=== PATIENT | female | born 1970 | race Two or more races ===

== ENCOUNTER → 2016-05-23 | Outpatient (CLI) | payer OTHER ==
[~2016-05-23] MED LIST: ACET30TAB PO; BACL10TA2 PO; CLAR5TAB7 PO; EXCETAB81 PO; MULTCAP PO; TOPA100T8 PO; ZOLO50TA PO
--- NOTE | 2016-05-23 23:41 | ECWPNPC ---
PATIENT NAME: AISHA OLIVO : 1970 GENDER: FEMALE VISIT DATE: 05/23/2016 DISCHARGE DATE: 05/23/16 1234 VISIT LOCKED DATE TIME: PHYSICIAN: HUEY LÓPEZ RESOURCE: HUEY LÓPEZ REASON FOR APPOINTMENT 1. NECK HISTORY OF PRESENT ILLNESS NEW PATIENT CONSULT: 46 Y/O REFERRED BY KWABENA PAYAN AT [facility] TO EVALUATE CHRONIC NECK PAIN.PAIN BEGAN APPROXIMATLEY TWO YEARS AGO WITHOUT PRECIPITATING EVENT.NOTICED RIGHT ARM NUMBNESS ABOUT 2 DAYS AGO.STATES SHE LIFTED SOMEONE HEAVY AND THIS BEGAN IN RIGHT ARM.SHE IS A NURSE AIDE.RATING PAIN VAS 7/10.PAIN IS AGGREVATED BY LIFTING.RELIEVED SOMEWHAT BY HEAT AND BACLOFEN. WHEN DID YOUR PAIN FIRST START? . BRIEFLY DESCRIBE HOW YOUR PAIN STARTED? . HOW DOES YOUR PAIN CHANGE WITH TIME? . DOES YOUR PAIN AWAKEN YOU FROM SLEEP? . HOW MANY HOURS OF SLEEP DO YOU NORMALLY GET? . ANY DIAGNOSTIC TESTING? . FACILITY WHERE TESTS WERE DONE? ____. PAIN TREATMENT TREATMENT YES CANCER HAVE YOU EVER HAD ANY TYPE OF CANCER?NO NO. PAIN SCREENING: PATIENT HAS A COMPLAINT OF ACUTE OR CHRONIC PAIN YES FALL RISK SCREENING: SCREENING :NO FALLS IN THE PAST YEAR MAGDALENO INVENTORY: QUESTIONNAIRE ASSESSEDTBD SCORE VALUE CALCULATED TBD CURRENT MEDICATIONS TAKING TOPAMAX 100 MG TABLET 1 TABLET ORALLY TWICE A DAY TAKING BACLOFEN 10 MG TABLET 1 TABLET WITH FOOD OR MILK ORALLY THREE TIMES A DAY NEEDED TAKING LISINOPRIL-HYDROCHLOROTHIAZIDE 10-12.5 MG TABLET 1 TABLET ORALLY ONCE A DAY TAKING EXCEDRIN EXTRA STRENGTH 250-250-65 MG TABLET 2 TABLETS NEEDED ORALLY EVERY 6 HRS MEDICATION LIST REVIEWED AND RECONCILED WITH THE PATIENT PAST MEDICAL HISTORY MIGRAINES HYPERTENSION NECK PAIN ALLERGIES IMITREX: FACIAL STIFFNESS: ALLERGY CYCLOBENZAPRINE HCL: "ELECTRIC SHOCK SENSATIONS: SIDE EFFECTS SURGICAL HISTORY APPENDECTOMY 1985 BREAST BX 1998 SINUS SURGERY 1999 FAMILY HISTORY FATHER: MOTHER: ALIVE, DIAGNOSED WITH HYPERTENSION SOCIAL HISTORY GENERAL: TOBACCO USE ARE YOU A:CURRENT SMOKER PATIENT COUNSELED ON THE DANGERS OF TOBACCO USE AND URGED TO QUIT:05/23/2016 ARE YOU INTERESTED IN QUITTING?THINKING ABOUT QUITTING COUNSELED THE PATIENT ON SMOKING CESSATION, EDUCATION [id number]/04/2016 ALCOHOL SCREENING POINTS1 INTERPRETATIONNEGATIVE RECREATIONAL DRUG USE DRUG USE?NO CAFFEINE CAFFEINE USE?YES HOW OFTEN AND HOW MUCH? 4-5 CUPS COFFEE/DAILY. USES EXCEDRIN WITH CAFFEINE DAILY. OCCUPATION: STEEL INSPECTOR. DIET: REGULAR. EXERCISE: NO REGULAR EXERCISE. MARITAL STATUS: SINGLE. OTHERS AT HOME: LIVES ALONE. MUSLIM: NONE. LEARNING BARRIERS / SPECIAL NEEDS LEARNING PREFERENCES?YES :DEMONSTRATION/VERBAL INSTRUCTION LEARNING CAPABILITIES PRESENT?YES MEDICATION ABUSE NO PSYCHOLOGICAL HX TREATMENTNO PAIN CLINIC PFS, CLERGY, PUBLIC HEALTH REFERRALS CLERGY REFERRAL NEEDED?NO WAS THE PROVIDER NOTIFIED OF ANY PERTINENT INFO?NO PFS REFERRAL NEEDED?NO PUBLIC HEALTH REFERRAL NEEDED?NO PATIENT: ____. ADVANCED DIRECTIVES HEALTH CARE PROXY?NO POWER OF COMMUNITY SPORTS COORDINATOR?NO DOMESTIC VIOLENCE: NONE. HOSPITALIZATION/MAJOR DIAGNOSTIC PROCEDURE ABOVE SURGERIES REVIEW OF SYSTEMS CONSTITUTIONAL: ANY CHANGE IN YOUR MEDICAL CONDITION? NO . RECENT ILLNESS DENIES . CHILLS NO . FEVER NO . WEIGHT LOSS DENIES . INFECTION: DO YOU HAVE NEW INFECTIONS? NO . DO YOU HAVE HISTORY OF MRSA? NO . MUSCULOSKELETAL: ANY NEW PATTERNS OF PAIN OR NUMBNESS? YES NOTES HX OF NECK PAIN X 2YRS . SYTEMIC LUPUS NO . GASTROENTEROLOGY: ANY NEW CHANGE IN BOWEL CONTROL? NO . BARRETTS ESOPHAGUS NO . CIRRHOSIS NO . HEPATITIS NO . LIVER FAILURE NO . ACID REFLUX NO . UNEXPLAINED WEIGHT LOSS NO . GENITOURINARY: ANY NEW CHANGE IN BLADDER CONTROL? NO . IS THERE A CHANCE YOU COULD BE ? NO . HEMATOLOGY/LYMPH: DO YOU TAKE ANY BLOOD THINNERS? (FOR EXAMPLE- COUMADIN, PLAVIX, AGGRENOX, PLATEL, PRADAXA, OR XARELTO) NO . WHEN WAS YOUR LAST DOSE? DATE: TIME: . LOW PLATELET COUNT NO . SICKLE CELL DISEASE NO . VON WILLIEBRANDS NO . FACTOR V LEIDEN NO . THALLASEMIA NO . ANEMIA NO . EASY BRUISING NO . NEUROLOGY: HAVE YOU FALLEN IN THE PAST 6 MONTHS? NO . ANY NEW EXTREMITY NUMBNESS OR WEAKNESS? YES NOTES TINGLING/DISC IN BOTH ARMS-LEFT ARM FINGERTIPS TO ELBOW. RIGHT ARM ENTIRE ARM . HEAD INJURY NO . DEMENTIA NO . CEREBRAL PALSY NO . MULTIPLE SCLEROSIS NO . DIZZINESS NO . HEADACHE ASSOCIATED WITH NAUSEA, ASSOCIATED WITH PHOTOPHOBIA, DIFFUSE, INTERMITTENT, POUNDING, SHARP, SEVERE . STROKES NO . VERTIGO NO . CARDIOLOGY: DO YOU HAVE A PACEMAKER OR DEFIBRILLATOR? NO . ANGINA NO . HEART ATTACK NO . HEART SURGERY NO . CONGESTIVE HEART FAILURE/FLUID OVERLOAD NO . CHEST PAIN NO, DENIES . HIGH BLOOD PRESSURE ON MEDICATION(S) . IRREGULAR HEART BEAT NO . SHORTNESS OF BREATH DENIES . RESPIRATORY: HAVE YOU BEEN SICK IN THE PAST WEEK? NO . FEVER NO . FLU LIKE SYMPTOMS? NO . CPAP NO . BYPAP NO . ASTHMA NO . EMPHYSEMA NO . CHRONIC LUNG DISEASES NO . SHORTNESS OF BREATH ON EXERTION NO . DO YOU USE ANY TYPE OF TOBACCO (SMOKE, SMOKELESS, CHEW)? YES-7-10 CIGS/DAILY . COUGH NO, DENIES . SHORTNESS OF BREATH DENIES . SNORING NO . INTEGUMENTARY: DO YOU HAVE ANY RASHES OR OPEN SORES? NO . ALLERGIC/IMMUNO: ARE YOU ALLERGIC TO SHELLFISH OR IV DYE? NO . ANY NEW ALLERGIES? NO . PSYCHIATRIC: DO YOU HAVE THOUGHTS OF HURTING YOURSELF OR SOMEONE ELSE? NO . ARE YOU ABUSED, NEGLECTED, OR IN AN UNSAFE ENVIRONMENT? NO . ENDOCRINOLOGY: ARE YOU DIABETIC? NO . THYROID DISORDER NO . OTHER: DO YOU NEED ANY PRESCRIPTIONS? NO . IF YES, PLEASE LIST: ____ . ANY NEW PROBLEMS WITH YOUR MEDICATIONS? NO . WHEN DID YOU LAST EAT? ____ . WHEN DID YOU LAST DRINK? ____ . WHAT DID YOU LAST DRINK? ____ . NAME OF PERSON DRIVING YOU HOME? ____ . DO YOU HAVE ANY OTHER QUESTIONS OR CONCERNS NO . REVIEWED BY: PROVIDER: HUEY NOVA . VITAL SIGNS WT 114.2 LBS, HT 60 IN, BMI 22.30 INDEX, BP 121/65 MM HG, HR 82 /MIN, RR 16 /MIN, TEMP 97&, OXYGEN SAT % 98%, NA INITIALS SC 11:26, REVIEWED BY: MLF. EXAMINATION GENERAL EXAMINATION: GENERAL APPEARANCE:SHOWING SIGNS OF DISCOMFORT OVER RIGHT ARM. NECK:NEG. LYMPHADENOPATHY.. LUNGS:LUNG SOUNDS ARE CLEAR. HEART:HEART RATE REGULAR. ABDOMEN:SOFT AND NOT TENDER. MUSCULOSKELETAL:*, MUSCLE STRENGTH TESTING 5/5 BILATERAL UPPER EXTREMITIES., PALPATION: POSITIVE FOR PAIN OVER CSPINE. POSITIVE FOR PAIN OVER RIGHT CERVICAL PARASPINAL., TRIGGER POINTS:, ELICITED WITH PALPATION OVER CERVICAL SPINOUS PROCESSES AND ACROSS THE TRAPEZIUS MUSCLES RIGHT. RESTRICTION OF ROM IS NOTED RIGHT ARM. . DIAGNOSTIC:MRI [id number]. 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 PREVENTIVE MEDICINE PAIN CLINIC TEACHING: MEDICATIONS PRINTED HANDOUT GIVEN TO PT FOR GABAPENTIN. PROCEDURE CODES FA211 ESTABILISHED PATIENT [facility] CHARGE DISPOSITION & COMMUNICATION FOLLOW UP 2WK POST (REASON: C5/6-C6/7 ROGER) ELECTRONICALLY SIGNED BY AVTAR PALM ON 05/23/2016 AT 01:00 PM EST DISCLAIMER : THIS IS A VISIT SUMMARY EXTRACTED FROM THE [employer] CHART. IT IS NOT A COPY OF THE [employer] PROGRESS NOTE. ZARIA
== END ==
LOC: M PAIN 11:20
PROVIDERS: ATTEND Nurse Practitioner Family
DX: G89.29 Other chronic pain (principal); M47.22 Other spondylosis with radiculopathy, cervical region; G43.909 Migraine, unspecified, not intractable, without status migrainosus; I10 Essential (primary) hypertension; Z88.8 Allergy status to other drugs, medicaments and biological substances; F17.200 Nicotine dependence, unspecified, uncomplicated; Z79.899 Other long term (current) drug therapy

== ENCOUNTER → 2016-06-26 | Outpatient (CLI) | payer OTHER ==
[~2016-06-26] MED LIST changes: +ISOVUE-M 300 61% 15ML VIAL (Q9967) As Ordered ONE; +LIDOCAINE 1% SDV INJ 30 ML VIAL As Ordered ONE; +methylPREDNISolone SUSP 40 MG/ML (DEPO-medrol) VIAL (J1030) As Ordered ONE
--- NOTE | 2016-06-26 12:36 | REP ---
PARTIAL CERVICAL SPINE SERIES: Four views. HISTORY: Cervical epidural steroid injection for pain. 29 seconds of fluoroscopy time is reported. FINDINGS: A sequence of four last image hold fluoroscopic spot radiographs of the cervicothoracic junction document needle position and contrast injection associated with cervical epidural injection procedure. Signed by Mando Dowling MD 06/26/2016 08:57 P
--- NOTE | 2016-06-30 23:33 | ECWPNPC ---
PATIENT NAME: AISHA OLIVO : 1970 GENDER: FEMALE VISIT DATE: 06/26/2016 DISCHARGE DATE: 06/26/16 1159 VISIT LOCKED DATE TIME: PHYSICIAN: JONATHAN VALDOVINOS RESOURCE: JONATHAN VALDOVINOS REASON FOR APPOINTMENT 1. CERVICAL EPIDURAL HISTORY OF PRESENT ILLNESS HISTORY OF PRESENT ILLNESS: PAIN THE PATIENT DESCRIBES THE PAIN... FALL RISK SCREENING: SCREENING :NO FALLS IN THE PAST YEAR CURRENT MEDICATIONS TAKING TOPAMAX 100 MG TABLET 1 TABLET ORALLY TWICE A DAY, NOTES: 06/24/16 2100 TAKING BACLOFEN 10 MG TABLET 1 TABLET WITH FOOD OR MILK ORALLY THREE TIMES A DAY NEEDED, NOTES: > 1 WEEK TAKING LISINOPRIL-HYDROCHLOROTHIAZIDE 10-12.5 MG TABLET 1 TABLET ORALLY ONCE A DAY, NOTES: 06/26/16 0600 TAKING EXCEDRIN EXTRA STRENGTH 250-250-65 MG TABLET 2 TABLETS NEEDED ORALLY EVERY 6 HRS, NOTES: 06/25/16 1900 TAKING GABAPENTIN 100 MG CAPSULE DIRECTED ORALLY BID, NOTES: 06/24/162099 MEDICATION LIST REVIEWED AND RECONCILED WITH THE PATIENT PAST MEDICAL HISTORY MIGRAINES HYPERTENSION NECK PAIN ALLERGIES IMITREX: FACIAL STIFFNESS: ALLERGY CYCLOBENZAPRINE HCL: "ELECTRIC SHOCK SENSATIONS: SIDE EFFECTS SOCIAL HISTORY GENERAL: PAIN CLINIC PFS, CLERGY, PUBLIC HEALTH REFERRALS CLERGY REFERRAL NEEDED?NO WAS THE PROVIDER NOTIFIED OF ANY PERTINENT INFO?NO PFS REFERRAL NEEDED?NO PUBLIC HEALTH REFERRAL NEEDED?NO PATIENT: ____. REVIEW OF SYSTEMS CONSTITUTIONAL: ANY CHANGE IN YOUR MEDICAL CONDITION? NO . CHILLS NO . FEVER NO . INFECTION: DO YOU HAVE NEW INFECTIONS? NO . DO YOU HAVE HISTORY OF MRSA? NO . MUSCULOSKELETAL: ANY NEW PATTERNS OF PAIN OR NUMBNESS? NO . GASTROENTEROLOGY: ANY NEW CHANGE IN BOWEL CONTROL? NO . GENITOURINARY: ANY NEW CHANGE IN BLADDER CONTROL? NO . IS THERE A CHANCE YOU COULD BE ? NO . HEMATOLOGY/LYMPH: DO YOU TAKE ANY BLOOD THINNERS? (FOR EXAMPLE- COUMADIN, PLAVIX, AGGRENOX, PLATEL, PRADAXA, OR XARELTO) NO . WHEN WAS YOUR LAST DOSE? DATE: TIME: . NEUROLOGY: HAVE YOU FALLEN IN THE PAST 6 MONTHS? NO . ANY NEW EXTREMITY NUMBNESS OR WEAKNESS? NO . CARDIOLOGY: DO YOU HAVE A PACEMAKER OR DEFIBRILLATOR? NO . RESPIRATORY: HAVE YOU BEEN SICK IN THE PAST WEEK? NO . FEVER NO . FLU LIKE SYMPTOMS? NO . COUGH NO . INTEGUMENTARY: DO YOU HAVE ANY RASHES OR OPEN SORES? NO . ALLERGIC/IMMUNO: ARE YOU ALLERGIC TO SHELLFISH OR IV DYE? NO . ANY NEW ALLERGIES? NO . PSYCHIATRIC: DO YOU HAVE THOUGHTS OF HURTING YOURSELF OR SOMEONE ELSE? NO . ARE YOU ABUSED, NEGLECTED, OR IN AN UNSAFE ENVIRONMENT? NO . ENDOCRINOLOGY: ARE YOU DIABETIC? NO . OTHER: DO YOU NEED ANY PRESCRIPTIONS? NO . IF YES, PLEASE LIST: ____ . ANY NEW PROBLEMS WITH YOUR MEDICATIONS? NO . WHEN DID YOU LAST EAT? ____06/25/161999 . WHEN DID YOU LAST DRINK? ____06/26/16 0500 . WHAT DID YOU LAST DRINK? ____WATER . NAME OF PERSON DRIVING YOU HOME? ____DAWSON BREWER . DO YOU HAVE ANY OTHER QUESTIONS OR CONCERNS NO . REVIEWED BY: PROVIDER: . VITAL SIGNS WT 114.0 LBS, HT 60 IN, BMI 22.26 INDEX, BP 126/74 MM HG, HR 83 /MIN, RR 16 /MIN, TEMP 98.8 F, OXYGEN SAT % 100%, SAFE IN ENV? (Y/N) YES, NA INITIALS TL 0939, REVIEWED BY: LAS. WHALEN CERVICAL DISC DISORDER WITH RADICULOPATHY, CERVICOTHORACIC REGION - M50.13 (PRIMARY) PROCEDURES PN CERVICAL EPIDURAL PRE PROCEDURE DIAGNOSIS CERVICAL DISC DISORDER WITH RADICULOPATHY , CERVICAL RADICULOPATHY POST PROCEDURE DIAGNOSIS CERVICAL DISC DISORDER WITH RADICULOPATHY , CERVICAL RADICULOPATHY PROCEDURE C7-T1 EPIDURAL STEROID INJECTION UNDER FLUOROSCOPIC GUIDANCE (ALTERED TO T1-T2) SURGEON DR. JONATHAN VALDOVINOS EMBEDDED LINUX ENGINEER NONE ANESTHESIA LOCAL PRE PROCEDURE NOTE THE PATIENT HAS A HISTORY OF CHRONIC CERVICAL PAIN. I EVALUATE THE PATIENT AND REVIEWED THE CHART. I WENT OVER THE RISKS, ALTERNATIVES, AND BENEFITS ASSOCIATED WITH THIS PROCEDURE. THE PATIENT WOULD LIKE TO PROCEED AND GIVE CONSENT TO PERFORMED THE PROCEDURE. THE PATIENT DENIES UNEXPLAINABLE WEIGHT LOSS, FEVER, CHILLS, OR NEW CHANGES IN URINARY OR BOWEL CONTROL DESCRIPTION OF PROCEDURE THE PATIENT WAS BROUGHT TO THE PROCEDURE ROOM AND PLACED IN THE PRONE POSITION. THE CERVICOTHORACIC AREA WAS CLEANED WITH BETADINE SOLUTION AND DRAPED ASEPTICALLY. THE PROCEDURE WAS DONE UNDER STERILE CONDITIONS. I CHECKED LATERALITY AND THE LEVEL WHERE THE PROCEDURE WAS GOING TO BE PERFORMED WITH THE PATIENT AND THE SUPPORTING STAFF AT THE MOMENT OF THE TIME OUT IN THE PROCEDURE ROOM. UNDER FLUOROSCOPIC REVIEW I WAS UNABLE TO PROCEED WITH C7-T1. ISOVUE M DYE 30%, 0.25 ML, WAS INJECTED SHOWING ADEQUATE SPREAD OF THE DYE INTO THE CERVICAL SPINE. UNDER FLUOROSCOPIC GUIDANCE, THE TARGET WAS SELECTED AT THE INTERLAMINAR LEVEL OF T1-T2. LIDOCAINE WAS USED TO NUMB THE SKIN AND THE SUBCUTANEOUS TISSUE BELOW IT. EPIDURAL TUOHY NEEDLE 17-GAUGE WAS ADVANCED UNDER FLUOROSCOPIC GUIDANCE AND FOLLOWING PATIENT FEEDBACK UNTIL THE EPIDURAL SPACE WAS REACHED 6 CM DEEP INTO THE SKIN BY THE LOSS OF RESISTANCE TECHNIQUE. THEN, A SOLUTION OF 3 ML OF NORMAL SALINE WITH DEPO-MEDROL 60 MG WAS INJECTED SLOWLY FOLLOWING PATIENT FEEDBACK. THERE WAS NO EVIDENCE OF BLOOD, PARESTHESIA OR CEREBROSPINAL FLUID DURING THE PROCEDURE. THE PATIENT WAS SENT TO THE RECOVERY ROOM. THE PATIENT WAS MOVING THE EXTREMITIES AND DOING WELL. THERE WAS NO COMPLICATION DURING THE PROCEDURE. FLUOROSCOPY TIME WAS 23 SECONDS. POST PROCEDURE NOTE THE PATIENT WILL BE SEEN IN A FOLLOW UP IN THE NEXT FEW WEEKS. INSTRUCTIONS WERE GIVEN, QUESTIONS WERE ANSWERED, AND THE PATIENT EXPRESSED UNDERSTANDING AND AGREES WITH THE PLAN. I, EZIO VASQUEZ, DOCUMENTED THE ABOVE INFORMATION ACTING A SCRIBE FOR DR. VALDOVINOS. I HAVE REVIEWED THE ABOVE DOCUMENT, WRITTEN BY EZIO VASQUEZ SCRIBE AND I VERIFY THAT IT IS ACCURATE. DIAGNOSTIC IMAGING [facility] FLUORO GUIDE SPINE INJECTION (PAIN)[id number] PROCEDURE CODES 93537 CERVICAL/THORACIC W/ IMAGING 6045F RADXPS IN END [id number] PXD DISPOSITION & COMMUNICATION FOLLOW UP 3 WEEKS ELECTRONICALLY SIGNED BY JONATHAN VALDOVINOS MD ON 06/30/2016 AT 08:50 PM EDT DISCLAIMER : THIS IS A VISIT SUMMARY EXTRACTED FROM THE [employer] CHART. IT IS NOT A COPY OF THE [employer] PROGRESS NOTE. MTDD
== END ==
LOC: M PAIN 10:30
PROVIDERS: ATTEND Anesthesiology
DX: G89.29 Other chronic pain (principal); M50.13 Cervical disc disorder with radiculopathy, cervicothoracic region; G43.909 Migraine, unspecified, not intractable, without status migrainosus; I10 Essential (primary) hypertension; Z88.8 Allergy status to other drugs, medicaments and biological substances

== ENCOUNTER → 2016-07-17 | Outpatient (CLI) | payer OTHER ==
[~2016-07-17] MED LIST changes: -ISOVUE-M 300 61% 15ML VIAL (Q9967) As Ordered ONE; -LIDOCAINE 1% SDV INJ 30 ML VIAL As Ordered ONE; -methylPREDNISolone SUSP 40 MG/ML (DEPO-medrol) VIAL (J1030) As Ordered ONE
--- NOTE | 2016-07-30 02:29 | ECWPNPC ---
PATIENT NAME: AISHA OLIVO : 1970 GENDER: FEMALE VISIT DATE: 07/17/2016 DISCHARGE DATE: 07/17/16 1514 VISIT LOCKED DATE TIME: PHYSICIAN: HUEY LÓPEZ RESOURCE: HUEY LÓPEZ REASON FOR APPOINTMENT 1. POST CESB HISTORY OF PRESENT ILLNESS HISTORY OF PRESENT ILLNESS: HERE FORPOST PROCEDURE F/U.HAD ROGER ON 06-26-16.REPORTS INCREASE IN SWELLING OVER CERVICAL SPINE POST PROCEDUR.REPORTS NO CHANGE IN PAIN.CONTINUES TO SUFFER WITH INTERMITTENT RIGHT ARM NUMBNESS AND PAIN.THIS AREA OF PAIN IS INCREASED WITH LAYING DOWN IN CERTAIN POSITIONS.REPORTS VAGUE REPORTS OF LEFT ARM AND HAND PARATHESIAS.C/O SEVERE RIGHT UPPER BACK/SCAPULAR MUSCLE SPASM PAIN.PAIN IS AGGREVATED BY MOTION OF HEAD AND USE OF RIGHT ARM. PAIN THE PATIENT DESCRIBES THE PAIN... FALL RISK SCREENING: SCREENING :NO FALLS IN THE PAST YEAR CURRENT MEDICATIONS TAKING TOPAMAX 100 MG TABLET 1 TABLET ORALLY TWICE A DAY TAKING BACLOFEN 10 MG TABLET 1 TABLET WITH FOOD OR MILK ORALLY THREE TIMES A DAY NEEDED TAKING LISINOPRIL-HYDROCHLOROTHIAZIDE 10-12.5 MG TABLET 1 TABLET ORALLY ONCE A DAY TAKING EXCEDRIN EXTRA STRENGTH 250-250-65 MG TABLET 2 TABLETS NEEDED ORALLY EVERY 6 HRS TAKING GABAPENTIN 100 MG CAPSULE DIRECTED ORALLY BID MEDICATION LIST REVIEWED AND RECONCILED WITH THE PATIENT PAST MEDICAL HISTORY MIGRAINES HYPERTENSION NECK PAIN ALLERGIES IMITREX: FACIAL STIFFNESS: ALLERGY CYCLOBENZAPRINE HCL: "ELECTRIC SHOCK SENSATIONS: SIDE EFFECTS SOCIAL HISTORY GENERAL: PAIN CLINIC PFS, CLERGY, PUBLIC HEALTH REFERRALS CLERGY REFERRAL NEEDED?NO WAS THE PROVIDER NOTIFIED OF ANY PERTINENT INFO?NO PFS REFERRAL NEEDED?NO PUBLIC HEALTH REFERRAL NEEDED?NO PATIENT: ____. REVIEW OF SYSTEMS CONSTITUTIONAL: ANY CHANGE IN YOUR MEDICAL CONDITION? NO . CHILLS NO . FEVER NO . INFECTION: DO YOU HAVE NEW INFECTIONS? NO . DO YOU HAVE HISTORY OF MRSA? NO . MUSCULOSKELETAL: ANY NEW PATTERNS OF PAIN OR NUMBNESS? YES, MUSCLES ON RIGHT SIDE OF UPPER BACK TIGHT AND PUFFY . GASTROENTEROLOGY: ANY NEW CHANGE IN BOWEL CONTROL? NO . GENITOURINARY: ANY NEW CHANGE IN BLADDER CONTROL? NO . IS THERE A CHANCE YOU COULD BE ? NO . HEMATOLOGY/LYMPH: DO YOU TAKE ANY BLOOD THINNERS? (FOR EXAMPLE- COUMADIN, PLAVIX, AGGRENOX, PLATEL, PRADAXA, OR XARELTO) NO . WHEN WAS YOUR LAST DOSE? DATE: TIME: . NEUROLOGY: HAVE YOU FALLEN IN THE PAST 6 MONTHS? NO . ANY NEW EXTREMITY NUMBNESS OR WEAKNESS? NO . CARDIOLOGY: DO YOU HAVE A PACEMAKER OR DEFIBRILLATOR? NO . RESPIRATORY: HAVE YOU BEEN SICK IN THE PAST WEEK? NO . FEVER NO . FLU LIKE SYMPTOMS? NO . COUGH NO . INTEGUMENTARY: DO YOU HAVE ANY RASHES OR OPEN SORES? NO . ALLERGIC/IMMUNO: ARE YOU ALLERGIC TO SHELLFISH OR IV DYE? NO . ANY NEW ALLERGIES? NO . PSYCHIATRIC: DO YOU HAVE THOUGHTS OF HURTING YOURSELF OR SOMEONE ELSE? NO . ARE YOU ABUSED, NEGLECTED, OR IN AN UNSAFE ENVIRONMENT? NO . ENDOCRINOLOGY: ARE YOU DIABETIC? NO . OTHER: DO YOU NEED ANY PRESCRIPTIONS? NO . IF YES, PLEASE LIST: ____ . ANY NEW PROBLEMS WITH YOUR MEDICATIONS? NO . WHEN DID YOU LAST EAT? ____ . WHEN DID YOU LAST DRINK? ____ . WHAT DID YOU LAST DRINK? ____ . NAME OF PERSON DRIVING YOU HOME? ____ . DO YOU HAVE ANY OTHER QUESTIONS OR CONCERNS NO . REVIEWED BY: PROVIDER: HUEY NOVA . VITAL SIGNS WT 116.6 LBS, HT 60 IN, BMI 22.77 INDEX, BP 128/75 MM HG, HR 100 /MIN, RR 16 /MIN, TEMP 100.2 F, OXYGEN SAT % 98%, NA INITIALS TL 1400, REVIEWED BY: CS. EXAMINATION GENERAL EXAMINATION: GENERAL APPEARANCE:SHOWING SIGNS OF DISCOMFORT OVER RIGHT ARM. NECK:NEG. LYMPHADENOPATHY.. LUNGS:LUNG SOUNDS ARE CLEAR. HEART:HEART RATE REGULAR. ABDOMEN:SOFT AND NOT TENDER. MUSCULOSKELETAL:*, MUSCLE STRENGTH TESTING 5/5 BILATERAL UPPER EXTREMITIES., PALPATION: POSITIVE FOR PAIN OVER CSPINE. POSITIVE FOR PAIN OVER RIGHT CERVICAL PARASPINAL., TRIGGER POINTS:, ELICITED WITH PALPATION OVER CERVICAL SPINOUS PROCESSES AND ACROSS THE TRAPEZIUS MUSCLES RIGHT. RESTRICTION OF ROM IS NOTED RIGHT ARM. . DIAGNOSTIC:MRI [id number]. ASSESSMENTS MYALGIA - M79.1 (PRIMARY) CERVICAL DISC DISORDER WITH RADICULOPATHY, CERVICOTHORACIC REGION - M50.13 (PRIMARY) TREATMENT MYALGIA INCREASE GABAPENTIN CAPSULE, 100 MG, 2-3, ORALLY, AT HS, 30 DAY(S), 45, REFILLS 2 TRIGGER POINT 1-2 HUEY TAM 07/17/2016 2:50:50 PM > RIGHT UPPER BACK/SCAPULAR/RHOMBOID TPI REFERRAL TO:PHYSICAL THERAPIST REASON:2XWK X 6WK MYOFASCIAL RELEASE RIGHT UPPER BACK PROCEDURE CODES FA211 ESTABILISHED PATIENT [facility] CHARGE DISPOSITION & COMMUNICATION FOLLOW UP 2WK POST (REASON: TPI RIGHT RHOMBOID/SCAPULAR) ELECTRONICALLY SIGNED BY AVTAR PALM ON 07/29/2016 AT 09:47 AM EDT DISCLAIMER : THIS IS A VISIT SUMMARY EXTRACTED FROM THE [employer] CHART. IT IS NOT A COPY OF THE [employer] PROGRESS NOTE. ZARIA
== END ==
LOC: M PAIN 14:40
PROVIDERS: ATTEND Nurse Practitioner Family
DX: G89.29 Other chronic pain (principal); M79.1 Myalgia; M50.13 Cervical disc disorder with radiculopathy, cervicothoracic region; G43.909 Migraine, unspecified, not intractable, without status migrainosus; I10 Essential (primary) hypertension; Z88.8 Allergy status to other drugs, medicaments and biological substances; Z79.899 Other long term (current) drug therapy

== ENCOUNTER → 2016-08-27 | Outpatient (CLI) | payer OTHER ==
[~2016-08-27] MED LIST changes: +BUPIVACAINE HCL 0.25% 10 ML VIAL As Ordered ONE; +BUPIVACAINE HCL 0.25% 30 ML VIAL As Ordered ONE; +TRIAMCINOLONE ACETONIDE SUSP 40 MG/ML VIAL (J3301) As Ordered ONE; +diazePAM 5 MG TAB As Ordered ONE; +oxyCODONE 5MG TAB As Ordered ONE
--- NOTE | 2016-09-01 23:45 | ECWPNPC ---
PATIENT NAME: AISHA OLIVO : 1970 GENDER: FEMALE VISIT DATE: 08/27/2016 DISCHARGE DATE: 08/27/16 1531 VISIT LOCKED DATE TIME: PHYSICIAN: JONATHAN VALDOVINOS RESOURCE: JONATHAN VALDOVINOS REASON FOR APPOINTMENT 1. TPI HISTORY OF PRESENT ILLNESS HISTORY OF PRESENT ILLNESS: PAIN THE PATIENT DESCRIBES THE PAIN... FALL RISK SCREENING: SCREENING :NO FALLS IN THE PAST YEAR CURRENT MEDICATIONS TAKING TOPAMAX 100 MG TABLET 1 TABLET ORALLY TWICE A DAY, NOTES: COUPLE DAYS AGO TAKING BACLOFEN 10 MG TABLET 1 TABLET WITH FOOD OR MILK ORALLY THREE TIMES A DAY NEEDED, NOTES: 5 DAYS AGO TAKING LISINOPRIL-HYDROCHLOROTHIAZIDE 10-12.5 MG TABLET 1 TABLET ORALLY ONCE A DAY, NOTES: 08-27-16 0600 TAKING EXCEDRIN EXTRA STRENGTH 250-250-65 MG TABLET 2 TABLETS NEEDED ORALLY EVERY 6 HRS, NOTES: 08-27-16 0900 TAKING GABAPENTIN 100 MG CAPSULE 2-3 ORALLY AT HS, NOTES: 08-26-16 2100 MEDICATION LIST REVIEWED AND RECONCILED WITH THE PATIENT PAST MEDICAL HISTORY MIGRAINES HYPERTENSION NECK PAIN ALLERGIES IMITREX: FACIAL STIFFNESS: ALLERGY CYCLOBENZAPRINE HCL: "ELECTRIC SHOCK SENSATIONS: SIDE EFFECTS REVIEW OF SYSTEMS CONSTITUTIONAL: ANY CHANGE IN YOUR MEDICAL CONDITION? NO . CHILLS NO . FEVER NO . INFECTION: DO YOU HAVE NEW INFECTIONS? NO . DO YOU HAVE HISTORY OF MRSA? NO . MUSCULOSKELETAL: ANY NEW PATTERNS OF PAIN OR NUMBNESS? NO . GASTROENTEROLOGY: ANY NEW CHANGE IN BOWEL CONTROL? NO . GENITOURINARY: ANY NEW CHANGE IN BLADDER CONTROL? NO . IS THERE A CHANCE YOU COULD BE ? NO . HEMATOLOGY/LYMPH: DO YOU TAKE ANY BLOOD THINNERS? (FOR EXAMPLE- COUMADIN, PLAVIX, AGGRENOX, PLATEL, PRADAXA, OR XARELTO) NO . WHEN WAS YOUR LAST DOSE? DATE: TIME: . NEUROLOGY: HAVE YOU FALLEN IN THE PAST 6 MONTHS? NO . ANY NEW EXTREMITY NUMBNESS OR WEAKNESS? NO . CARDIOLOGY: DO YOU HAVE A PACEMAKER OR DEFIBRILLATOR? NO . RESPIRATORY: HAVE YOU BEEN SICK IN THE PAST WEEK? NO . FEVER NO . FLU LIKE SYMPTOMS? NO . COUGH NO . INTEGUMENTARY: DO YOU HAVE ANY RASHES OR OPEN SORES? NO . ALLERGIC/IMMUNO: ARE YOU ALLERGIC TO SHELLFISH OR IV DYE? NO . ANY NEW ALLERGIES? NO . PSYCHIATRIC: DO YOU HAVE THOUGHTS OF HURTING YOURSELF OR SOMEONE ELSE? NO . ARE YOU ABUSED, NEGLECTED, OR IN AN UNSAFE ENVIRONMENT? NO . ENDOCRINOLOGY: ARE YOU DIABETIC? NO . OTHER: DO YOU NEED ANY PRESCRIPTIONS? NO . IF YES, PLEASE LIST: ____ . ANY NEW PROBLEMS WITH YOUR MEDICATIONS? NO . WHEN DID YOU LAST EAT? 08-26-16 PM . WHEN DID YOU LAST DRINK? 08-27-16 1000 . WHAT DID YOU LAST DRINK? WATER . NAME OF PERSON DRIVING YOU HOME? DAWSON . DO YOU HAVE ANY OTHER QUESTIONS OR CONCERNS NO . REVIEWED BY: PROVIDER: . VITAL SIGNS WT 114.0 LBS, HT 60 IN, BMI 22.26 INDEX, BP 110/66 MM HG, HR 87 /MIN, RR 16 /MIN, TEMP 98.5 F, OXYGEN SAT % 100%, NA INITIALS TL 1340, REVIEWED BY: CM. ASSESSMENTS MYALGIA - M79.1 (PRIMARY) PROCEDURES PN TRIGGER POINT INJECTION WITH STEROIDS PRE PROCEDURE DIAGNOSIS 1. MYALGIA 2. PAIN AT RIGHT THORACIC AREA AND RIGHT SHOULDER AREA POST PROCEDURE DIAGNOSIS 1. MYALGIA 2. PAIN AT RIGHT THORACIC AREA AND RIGHT SHOULDER AREA PROCEDURE TRIGGER POINT INJECTION AT RIGHT THORACIC AREA AND RIGHT SHOULDER AREA SURGEON DR. JONATHAN VALDOVINOS METAL MODEL MAKER NONE ANESTHESIA LOCAL PRE PROCEDURE NOTE THE PATIENT HAS A HISTORY OF CHRONIC PAIN AT THE RIGHT THORACIC AREA AND RIGHT SHOULDER AREA. I EVALUATE THE PATIENT AND REVIEWED THE CHART. THERE IS EVIDENCE OF BANDS OF TISSUE WITH RESTRICTION OF MOVEMENT AND PRESENCE OF TRIGGER POINT AT THE AFFECTED AREA. I WENT OVER THE RISKS, ALTERNATIVES, AND BENEFITS ASSOCIATED WITH THIS PROCEDURE. THE PATIENT WOULD LIKE TO PROCEED AND GIVE CONSENT TO PERFORMED THE PROCEDURE. THE PATIENT DENIES UNEXPLAINABLE WEIGHT LOSS, FEVER, CHILLS, OR NEW CHANGES IN URINARY OR BOWEL CONTROL DESCRIPTION OF PROCEDURE THE PATIENT WAS BROUGHT TO THE PROCEDURE ROOM AND PLACED IN THE SITTING POSITION. THE AREA WAS CLEANED WITH ALCOHOL. THE PROCEDURE WAS DONE USING ASEPTIC STERILE TECHNIQUE. I CHECKED LATERALITY AND THE LEVEL WHERE THE PROCEDURE WAS GOING TO BE PERFORMED WITH THE PATIENT AND THE SUPPORTING STAFF AT THE MOMENT OF THE TIME OUT IN THE PROCEDURE ROOM. USING A 25-GAUGE NEEDLE, TRIGGER POINTS WERE INJECTED AT THE RIGHT THORACIC AREA AND RIGHT SHOULDER AREA WITH A TOTAL OF 40 ML OF BUPIVACAINE 0.25% AND KENALOG 40 MG. THERE WAS NO EVIDENCE OF BLOOD, PARESTHESIA OR CEREBROSPINAL FLUID DURING THE PROCEDURE. THE PATIENT WAS SENT TO THE RECOVERY ROOM. THE PATIENT WAS MOVING THE EXTREMITIES AND DOING WELL. THERE WAS NO COMPLICATION DURING THE PROCEDURE POST PROCEDURE NOTE THE PATIENT WILL BE SEEN IN A FOLLOW UP IN THE NEXT FEW WEEKS. INSTRUCTIONS WERE GIVEN, QUESTIONS WERE ANSWERED, AND THE PATIENT EXPRESSED UNDERSTANDING AND AGREES WITH THE PLAN. I, EZIO VASQUEZ, DOCUMENTED THE ABOVE INFORMATION ACTING A SCRIBE FOR DR. VALDOVINOS. I HAVE REVIEWED THE ABOVE DOCUMENT, WRITTEN BY EZIO VASQUEZ SCRIBRenan AND I VERIFY THAT IT IS ACCURATE PROCEDURE CODES 19407 INJECT TRIGGER POINTS 3/> DISPOSITION & COMMUNICATION FOLLOW UP 3 WEEKS ELECTRONICALLY SIGNED BY JONATHAN VALDOVINOS MD ON 09/01/2016 AT 07:53 PM EDT DISCLAIMER : THIS IS A VISIT SUMMARY EXTRACTED FROM THE [email or web address] CHART. IT IS NOT A COPY OF THE [employer] PROGRESS NOTE. MTDDejon
== END ==
LOC: M PAIN 13:20
PROVIDERS: ATTEND Anesthesiology
DX: G89.29 Other chronic pain (principal); M79.1 Myalgia; M54.6 Pain in thoracic spine; M25.511 Pain in right shoulder; Z79.899 Other long term (current) drug therapy

== ENCOUNTER → 2017-06-21 | Outpatient (CLI) | payer BC | LOC: M RAD 11:01 | DX: J32.4 Chronic pansinusitis (principal) | CPT/HCPCS: 70486 ==

== ENCOUNTER → 2022-06-05 | Outpatient (CLI) | payer BC ==
[~2022-06-05] MED LIST changes: +ACET-716 PO; -ACET30TAB PO; -BUPIVACAINE HCL 0.25% 10 ML VIAL As Ordered ONE; -BUPIVACAINE HCL 0.25% 30 ML VIAL As Ordered ONE; +HYDR12CA; +MULTTAB61 PO; +TIZA10TA; +TOPA100T12 PO; -TOPA100T8 PO; -TRIAMCINOLONE ACETONIDE SUSP 40 MG/ML VIAL (J3301) As Ordered ONE; -diazePAM 5 MG TAB As Ordered ONE; -oxyCODONE 5MG TAB As Ordered ONE
[2022-06-05 14:15] VITALS: BP 134/82
== END ==
LOC: M WHCPRO 12:44
PROVIDERS: ATTEND Surgery
DX: R92.8 Other abnormal and inconclusive findings on diagnostic imaging of breast (principal); N63.20 Unspecified lump in the left breast, unspecified quadrant

== ENCOUNTER 2022-08-15 08:28 | Day surgery (SDC) | payer BC ==
[~2022-08-15] VITALS: Ht 152.4 cm; Wt 51.7 kg
[~2022-08-15 08:28] MED LIST changes: +EXCETAB32 PO; -HYDR12CA; +HYDR12CA PO; +NS 1,000 ML IV ONE; -TIZA10TA; +TIZA10TA PO; +ZOLM2.5T20 PO
[2022-08-15] MEDS ORDERED: fentaNYL 100 MCG/2 ML INJECTION As Ordered ONE (09:55)
[2022-08-15] MEDS ORDERED: propofoL 200 MG/20 ML VIAL As Ordered ONE (09:55)
[2022-08-15 10:52] VITALS: BP 122/73
== END 2022-08-15 10:55 | disposition home or self-care (01) ==
LOC: M OPP 08:28
PROVIDERS: ATTEND Internal Medicine Gastroenterology
DX: Z12.11 Encounter for screening for malignant neoplasm of colon (principal); K63.5 Polyp of colon; K64.4 Residual hemorrhoidal skin tags; K64.8 Other hemorrhoids; K29.70 Gastritis, unspecified, without bleeding; K22.89 Other specified disease of esophagus; F17.200 Nicotine dependence, unspecified, uncomplicated; Z79.1 Long term (current) use of non-steroidal anti-inflammatories (NSAID); Z79.899 Other long term (current) drug therapy; Z88.5 Allergy status to narcotic agent; Z88.8 Allergy status to other drugs, medicaments and biological substances
CPT/HCPCS: 43239; 45385; 88305; J3010

== ENCOUNTER → 2023-10-08 | Outpatient (REF) | payer BC ==
[~2023-10-08] MED LIST changes: -NS 1,000 ML IV ONE
[2023-10-08 17:19] LABS: BASO % 0.3 % (0.0-1.0); EOS # 0.1 10^3/uL (0.0-0.5); EOS % 2.4 % (0.0-3.0); HEMATOCRIT 43.5 % (36.0-47.0); LYMPH % 33.6 % (24.0-44.0); MEAN CORPUSCULAR HEMOGLOBIN 29.2 pg (27.0-33.0); MEAN CORPUSCULAR HGB CONC 32.2 g/dl (32.0-36.5); MEAN CORPUSCULAR VOLUME 90.6 fl (80.0-96.0); MONO # 0.4 10^3/uL (0.0-0.8); NEUTROPHILS # 3.3 10^3/uL (1.5-8.5); NEUTROPHILS % 56.4 % (36.0-66.0); PLATELET COUNT, AUTOMATED 264 10^3/uL (150-450); WHITE BLOOD COUNT 5.9 10^3/uL (4.0-10.0)
[2023-10-08 17:34] LABS: HEMOGLOBIN A1c 5.1 % (4.0-6.0)
[2023-10-08 17:45] LABS: THYROID STIMULATING HORMONE 2.312 uIU/ML (0.55-4.78)
[2023-10-08 17:49] LABS: ALBUMIN 3.9 G/DL (3.2-5.2); ALKALINE PHOSPHATASE 103 U/L (46-116); ALT/SGPT 15 U/L (7.0-40); AST/SGOT 15 U/L (<34); BILIRUBIN,TOTAL 0.4 MG/DL (0.3-1.2); BLOOD UREA NITROGEN 11 MG/DL (9-23); CALCIUM LEVEL 9.4 MG/DL (8.5-10.1); CARBON DIOXIDE LEVEL 27 MMOL/L (20-31); CHLORIDE LEVEL 106 MMOL/L (98-107); CHOLESTEROL LEVEL 266 MG/DL (<200); CHOLESTEROL RISK RATIO 5.25 (<5); CREATININE FOR GFR 0.74 MG/DL (0.55-1.30); GLOMERULAR FILTRATION RATE > 60.0 (>51); GLUCOSE, FASTING 93 MG/DL (60-100); HDL CHOLESTEROL 50.6 MG/DL (>40); LDL CHOLESTEROL 179.4 MG/DL (<100); NON-HDL-C 215.4 MG/DL; POTASSIUM SERUM 4.1 MMOL/L (3.5-5.1); SODIUM LEVEL 139 MMOL/L (136-145); TOTAL PROTEIN 6.5 G/DL (5.7-8.2); TRIGLYCERIDES LEVEL 180 MG/DL (<150)
[2023-10-08 17:50] LABS: VITAMIN B12 LEVEL 502 PG/ML (211-911)
== END ==
LOC: M SFHCCAPE 08:31
PROVIDERS: ATTEND Physician Assistant Medical
DX: I10 Essential (primary) hypertension (principal); L30.9 Dermatitis, unspecified; Z13.220 Encounter for screening for lipoid disorders; R20.2 Paresthesia of skin

== ENCOUNTER → 2024-02-26 | Outpatient (REF) | payer OTHER | LOC: M SFHCCAPE 16:24 | PROVIDERS: ATTEND Physician Assistant Medical | DX: J02.9 Acute pharyngitis, unspecified (principal) ==

== ENCOUNTER 2024-05-18 09:24 | Emergency (ER) | payer OTHER ==
[~2024-05-18] VITALS: Ht 152.4 cm; Wt 50.9 kg
[2024-05-18 12:23] VITALS: BP 141/95; TEMP 97.9; O2SAT 100
[2024-05-18 13:14] LABS: BASO % 0.5 % (0.0-1.0); EOS # 0.1 10^3/uL (0.0-0.5); EOS % 1.4 % (0.0-3.0); HEMATOCRIT 41.4 % (36.0-47.0); HEMOGLOBIN 13.3 g/dl (12.0-15.5); LYMPH # 1.8 10^3/uL (1.5-5.0); LYMPH % 32.2 % (24.0-44.0); MEAN CORPUSCULAR HEMOGLOBIN 28.3 pg (27.0-33.0); MEAN CORPUSCULAR HGB CONC 32.1 g/dl (32.0-36.5); MEAN CORPUSCULAR VOLUME 88.1 fl (80.0-96.0); MONO # 0.2 10^3/uL (0.0-0.8); NEUTROPHILS # 3.4 10^3/uL (1.5-8.5); NEUTROPHILS % 61.7 % (36.0-66.0); PLATELET COUNT, AUTOMATED 250 10^3/uL (150-450); WHITE BLOOD COUNT 5.5 10^3/uL (4.0-10.0)
[2024-05-18 13:44] LABS: BLOOD UREA NITROGEN 11 MG/DL (9-23); CALCIUM LEVEL 8.6 MG/DL (8.5-10.1); CARBON DIOXIDE LEVEL 28 MMOL/L (20-31); CHLORIDE LEVEL 105 MMOL/L (98-107); CK-MB VALUE MASS < 1.0 NG/ML (<3.6); CPK CREATINE PHOSPHOKINASE 92 U/L (34-145); CREATININE FOR GFR 0.73 MG/DL (0.55-1.30); GLOMERULAR FILTRATION RATE > 60.0 (>51); GLUCOSE, FASTING 92 MG/DL (60-100); MB/CK RELATIVE INDEX 1.08 (< OR =4); POTASSIUM SERUM 3.9 MMOL/L (3.5-5.1); SODIUM LEVEL 142 MMOL/L (136-145)
[2024-05-18 15:24] LABS: CK-MB VALUE MASS < 1.0 NG/ML (<3.6)
[2024-05-18 15:26] LABS: CPK CREATINE PHOSPHOKINASE 87 U/L (34-145); MB/CK RELATIVE INDEX 1.14 (< OR =4)
== END 2024-05-18 15:49 | disposition left against medical advice (07) ==
LOC: M ED 09:24
DX: Z53.21 Procedure and treatment not carried out due to patient leaving prior to being seen by health care provider (principal)